=== PATIENT | female | born 1950 | race Caucasian/White ===

== ENCOUNTER 2019-09-23 18:15 | Inpatient (IN) | payer OTHER ==
[~2019-09-23] VITALS: Ht 154.9 cm; Wt 60.7 kg
--- NOTE | ~2019-09-23 | D ---
[facility] [place] [address] DISCHARGE SUMMARY Name: MICHAEL BOND Room #: 526B-B DIS IN M.R.#: [id number] Admission: 09/23/19 Attend Phys: Alberta Porras MD Discharge: 10/03/19 Date of : 52 Report #: [id number] THIS REPORT FOR: cc: Jaquelin Taylor MD,Jaquelin Britton,Mika Gama DO ~ THIS REPORT FOR: //name// CC: Alberta Taylor DATE OF SERVICE: 10/03/2019 INPATIENT PSYCHIATRIC DISCHARGE SUMMARY ATTENDING PHYSICIAN: Mika Britton DO. MORNING NEWS ANCHOR: Trupti Thorne MD DISCHARGE DIAGNOSES: Major neurocognitive disorder, likely due to vascular, but cannot exclude Alzheimer's component with behavioral disturbance, improved. Medical comorbidities, stageable 1-2 pressure ulcer on the coccyx; urinary tract infection for Proteus, on Omnicef; hypertension; gastroesophageal reflux disease; anemia; intractable right leg degenerative joint disease. HOSPITAL COURSE: The patient is on regular diet. I believe she has Ensure Max at evening meal. Psychiatric and medical care to be provided by receiving facility. DISCHARGE MEDICATIONS: Omnicef 300 mg p.o. b.i.d. x6 more days; baclofen 10 mg p.o. q. 8 p.r.n. for muscle spasm; escitalopram; Lexapro 10 mg oral daily for depression; cholecalciferol 5000 International Units p.o. daily for supplementation; docusate 100 mg p.o. b.i.d. for bowel motility, hold if diarrhea; famotidine 20 mg p.o. daily for GERD; ferrous sulfate 325 mg p.o. daily for supplementation; lorazepam 0.5 mg p.o. q. 8 p.r.n. anxiety; multivitamin 1 tab p.o. daily; Seroquel fumarate 25 mg p.o. b.i.d.; cyanocobalamin 1000 mcg oral daily for supplementation; vitamin C 1000 mg oral daily for supplementation. DISCHARGE LABORATORY DATA: Urinalysis has some slight positives; Proteus mirabilis grew out. Vitamin ____ 12 level 614. Total vitamin D 16.6, slightly low. Folate 13.3. REASON FOR ADMISSION: A 69-year-old female admitted for suicidal ideation, sent here from [facility] in [facility] [place] [address] DISCHARGE SUMMARY Name: MICHAEL BOND Room #: 526B-B [facility].#: [id number] Admission: 09/23/19 Attend Phys: Alberta Porras MD Discharge: 10/03/19 Date of : 52 Report #: [id number] [facility] with her . HOSPITAL COURSE: The patient was admitted to Geriatric Psychiatry Unit. Initially, she gave me a story she did not live with her and had been upset. In the Geriatric Psychiatry Unit, I performed a SLUMS, patient scored a low around 10/30, I believe, did not clarify things with Ni, social sciences chair at [facility], though presently, the patient had not left AMA, she has left several times previously. Her is quite physically ill ____ separately. PHYSICAL EXAMINATION: VITAL SIGNS: Today, temperature 36.7, pulse 64, respirations 30, BP 119/75, O2 sat 100% on low-flow oxygen. MUSCULOSKELETAL: Nonambulatory in a high-back wheelchair. MENTAL STATUS EXAMINATION: This is a well-developed, ill-appearing female. The patient is hard of hearing. Attention limited. Concentration limited. Speech is normal rate. Thought process is linear, generally goal directed. Thought content focused on getting back to see her . No SI, no HI, and no hopelessness or helplessness. Insight limited. Judgment limited. Fund of knowledge below average. PROGNOSIS: For this patient is guarded given her advanced dementia, physical debility and accompanying comorbidities. Head CT was done this admission, which showed atrophy and chronic advanced small vessel ischemic disease. Prognosis for this patient is guarded given her advanced dementia, physical debility. One thing I did want to make a note of is that she had any other general medical diagnosis ____. By: 21 13 Mika Britton, DO /nt
--- NOTE | 2019-09-23 19:54 | NUR ---
PT ARRIVED TO ROOM VIA EMS AT 1700. PT NEEDED ASSISTANCE TO TRANSFER OVER TO BED. PT HAD THOUGHTS OF SUICIDE FOR A YEAR NOW. PT STATED SHE HAD NO PLAN. PT DID SAY 2 WEEKS AGO SHE DID FALL OUT OF HER CHAIR PURPOSLY TO HURT SELF. PT RT LEG IS CONTRACTED FOR A YEAR AND A HALF NOW. PT STATED SHE HAD LEFT HIP FX BEFORE, BUT USING RT LEG HAS WEAKENED. PT ALSO STATED HER OF 45 YEARS RECENTLY HAD HIS LEG AMPUTATED. HE HAD THE OTHER LEG AMPUTATED FOUR YEARS AGO. SHE SAID THE STRESS WAS TOO MUCH AND SHE COULDN'T TAKE CARE OF HIM. THEY BOTH RESIDE AT [facility], SHE SAID THAT SHE HAS NOT BEEN GETTING PHYSICAL THERAPY AND JUST WANTED TO . PT IS VERY [place], NO HEARING AIDS. PT DIDN'T HAVE ANY BELONGINGS WITH HER EXCEPT HOSPITAL BLANKET. PT HAS WOUND TO COCCYX THAS HAS A DRESSING ON IT. PT STATED SHE DOES HAVE LOW SELF ESTEEM AND HER SAYS SHE NEEDS TO TALK TO SOMEONE. PT DID EAT A BOX DINNER. PT HAS OLD BRUISE TO LEFT SIDE OF FORHEAD THAT IS YELLOW IN COLOR. PT WILL NEED ASSISTANCE TO USE BSC, PT HAS BRIEF ON AT THIS TIME. PT DID SIGN HER CONCENTS FOR ADMISSION.
--- NOTE | 2019-09-23 20:12 | NUR ---
DID CALL PHONE NUMBER FOR DOUGLAS HER , NO ANSWER. [phone].
[2019-09-23] MEDS ORDERED: COLACE100 MG PO (21:05)
[2019-09-23] MEDS ORDERED: BACLOFEN 10MG T10 MG PO (21:05)
[2019-09-23] MEDS ORDERED: ACID CONTROLLER20 MG PO (21:05)
[2019-09-23] MEDS ORDERED: IRON325 M1 PO (21:06)
[2019-09-23] MEDS ORDERED: LEXAPRO5 MG PO (21:06)
[2019-09-23] MEDS ORDERED: MIRTAZAPINE15 M2 PO (21:07)
[2019-09-23] MEDS ORDERED: SUPER THERAVIT1 EACH PO (21:07)
[2019-09-23] MEDS ORDERED: ATIVAN0.5 M1 PO (21:07)
[2019-09-23] MEDS ORDERED: NYSTATIN15 G3 TOP (21:08)
[2019-09-23] MEDS ORDERED: SANTYL OINTMENT30 G1 TOP (21:08)
[2019-09-23] MEDS ORDERED: SEROQUEL 25 MG25 M1 PO (21:08)
[2019-09-23] MEDS ORDERED: VITAMIN C1000 MG PO (21:09)
[2019-09-23] MEDS ORDERED: B12 ACTIVE1000 MCG PO (21:09)
--- NOTE | 2019-09-24 05:53 | NUR ---
Assumed care of pt @ 1900. Pt calm et cooperative with iliana dang this shift. Took medications whole without difficulty. Ambulates via w/c per previous shift. Pt was bedfast this shift et did not attempt to ambulate. Prior shift also stated that pt had wound to buttocks but was unable to assess this shift. Wound had been assessed by prior shift but not photographed. Due to time constraints prior to pt going to bed, this nurse was unable to photograph. VSWNL. Health assessment with no abnormalities other than previously noted. Denies SI/HI @ present time. Currently resting in bed with eyes closed. Will continue to monitor per protocol.
[2019-09-24 08:21] VITALS: BP 123/84
[2019-09-24 12:54] VITALS: BP 123/84
--- NOTE | 2019-09-24 15:25 | NUR ---
Lying supine in bed eating lunch. Alert and orientated X4. Denies SI/HI. Concerned about pain on R buttock. Calm and cooperative, attempting to assist with cares. Breath sounds clear t/o. Reg HR auscultated. Color pink with brisk capillary refill and palpable peripheral pulses. Incontinent of yellow urine. Active bowel sounds over soft, rounded abdomen. States her last BM was Thursday. Large ulcer per R buttock, cleaned with NS, photographed and optiform drsg applied. Small ulcer per top of R foot with bruise with open top adjacent to ulcer. Both cleaned with NS and dressed with optiform after photographing. Currently sleeping in room without s/o distress.
--- NOTE | 2019-09-24 19:21 | NUR ---
Care of patient assumed at 1915. Patient is sleeping in bed. Assessment deferred until meds are prepared. When meds are taken to patient, she wakes easily and demands to know what the meds are, what they are for, and possible side effects. Once given this information, patient takes meds without issue. Allows assessment begrudgingly. HS, LS, BS all WNL. Denies SI/HI. Only shrugs when asked about pain. Dressing to buttock dry and intact. Refuses to answer orientation questions.
[2019-09-25 09:06] VITALS: BP 84/64
[2019-09-25 12:38] VITALS: BP 112/80
[2019-09-25 12:39] VITALS: BP 106/74
--- NOTE | 2019-09-25 20:36 | NUR ---
0800 Lying supine in bed with SR up. Alert and orientated X4. Flat, sad affect. States she wants to call her today but then states that they have not been accepting her phone calls at [facility]. Denies SI/HI. Breath sounds clear. Reg HR auscultated. Color pink with brisk capillary refill and palpable peripheral pulses. Incontinent of large amt yellow, malodorous urine with approximately 5 ml hernandez malodorous drainage on brief. Active bowel sounds over soft, rounded abdomen. Up to WC with two staff assist. Does not bear wt on legs. Drsgs on R buttock and R foot intact. Multiple requests to call . 1100 Called and spoke with him at length. When she got off phone she stated that she was getting a divorce and was tearful. Showered with alot of assistance and hair shampooed. Inguinal folds with some erythema and minimal excoriation. Dr. Shell here assessing pt, aware of drainage. States she will consider SENIOR PLANNING MANAGER exam as an outpt unless pt develops more symptoms. Will order nystatin for excoriation. Pt. states she wants to stay up for lunch and talk with again via phone. 1400 Wounds cleaned with NS and redressed. Slightly improved from yesterday. Incontinent of very large amt yellow malodorous urine. Cleaned up and placed in bed with hernandez in reach. Pt. states she had much better phone call with than one in AM. Affect brighter. Toenails clipped. 1800 Pt. spent most of day in dining room with peers. Requested phone again to call . Dr. Shell notified of malodorous urine, ordered UA. Informed that it may be difficult to obtain d/t pts repeated incontinence and inability to get to commode quickly d/t needing 2 staff members to transfer. Stated may obtain UA via straight cath if necessary. Currently seated in WC at nursing station.
[2019-09-25 20:58] VITALS: BP 109/74
--- NOTE | 2019-09-26 02:55 | NUR ---
Assumed care on 09/25/19 @ 19:15, in w/c propelling self in the mileu. AA&Ox3-4 fixated on calling her . Assisted to call, and he did not answer the call. Number verified with the [facility]. Repeatedly requests to call (about 12 times) Reminded that we called and he did not answer, and once it was past 2100, declined to call due to the hour of the evening being too late. cooperated with medication administration. In bed, asleep at this writing. Bed in low position, bed alarm set, will continue to moitor for patient safety.
[2019-09-26 05:27] VITALS: BP 109/74
[2019-09-26 08:15] VITALS: BP 101/64
--- NOTE | 2019-09-26 10:54 | NUR ---
WOUND CARE CONSULT; ASSESSED WOUNDS W/ ROUTE SALES TRAINEE GRAHAM CAIN WOUND COORDINATOR, PT CONFUSED BUT COOPERATIVE, STAGE 2 PRESSURE INJURY R BUTTOCK, PINK GRANULATING TISSUE PRESENT, SCANT DRAINAGE, SHEARING WOUND L BUTTOCK, NO DRAINAGE, R FOREFOOT WOUND X2, ONE DRY SCAB PRESENT, OTHER AREA BRUISING NOTED, TRAUMA? FOOT SLIGHTLY COOL TO TOUCH BUT PINK, DUE TO EDEMA UNABLE TO PALPATE DP NOR PT PULSES, STAFF STATES PT NONAMBULATORY AND DOES NOT WEAR SHOES, NO S/S INFECTION IN ANY OF THE WOUNDS, DISCUSSED NEED FOR TURNING AND OFF LOADING Q 2 HOURS GOLD SINCE LOW AIR LOSS PUMP NOT COMPATIBLE W/ BED RECOMMENDATIONS; PURACHOL AG, MOISTEN W/ NS TO R BUTTOCK WOUND, COVER W/ BORDER FOAM DRSG, CHANGE 3X WEEK AND PRN, ZGUARD TO L BUTTOCK WOUND DAILY, BORDER FOAM DRSG TO R FOREFOOT WOUNDS, CHANGE 3X WEEK OFF LOADING, TURN Q 2HOURS, WAFFLE SEAT CUSHION WHEN IN BED ROUTE SALES TRAINEE AWARE RECOMMENDATIONS;
[2019-09-26 22:01] VITALS: BP 134/83
--- NOTE | 2019-09-26 22:39 | NUR ---
Assumed care on 09/26/19 @ 19:15, a&ox2-3 incontinent of bladder, incontinent care provided. Cooperated with assessment, HRRR, Lungs CTA bilateral, ABD N x 4Q. Unable to report BM today or not d/t dementia. X2 assist, patient does not bear weight and is a heavy lift. Compliant with medication administration. In bed at this writing, bed in low level, bed alarm set. Eyes closed, respiration even and unlabored.
--- NOTE | 2019-09-27 08:50 | NUR ---
Assess due to pt with stage II coccyx ulcer and right forefoot ulcer. Followed by wound care. Admit to [facility] for SI, major depressive disorder. Has been eating 85-100% of meals which includes high protein sources. Wt status adequate BMI 25.6. Receives vitamin C and ferrous supplementation. Will add 1 ensure max per day, otherwise presents at low nutrition risk.
[2019-09-27 11:35] VITALS: BP 127/78
[2019-09-27 14:46] LABS: URINE BILIRUBIN NEGATIVE (Negative); URINE BLOOD NEGATIVE (Negative); URINE CLARITY CLEAR; URINE COLOR YELLOW; URINE GLUCOSE-RANDOM* NEGATIVE (Negative); URINE KETONES NEGATIVE (Negative); URINE LEUKOCYTES-REFLEX 2+ (Negative); URINE NITRITE-REFLEX NEGATIVE (Negative); URINE PROTEIN (DIPSTICK) NEGATIVE (Negative); URINE SPECIFIC GRAVITY 1.015 (1.005-1.035); URINE UROBILINOGEN 0.2 E.U./dl (0.2-1.0)
[2019-09-27 14:53] LABS: SQUAMOUS 0-3 Few /LPF (0-3)
[2019-09-27 14:54] LABS: CASTS None Seen /LPF (None Seen); URINE WBC-REFLEX >25 Many /HPF (0-5)
[2019-09-27 14:55] LABS: CRYSTALS None Seen /LPF (None Seen); URINE RBC 0-2 Rare /HPF (0-2)
--- NOTE | 2019-09-27 15:15 | NUR ---
SW faxed updates to [facility]
--- NOTE | 2019-09-27 18:00 | NUR ---
Assumed patient care at 0715. Vital signs stable, LSCTA, ABD soft and non-tender, BS x's 4. Patient continues to have wounds to bilateral heels and to buttocks. Wound care Team here today to assess and and treat wounds. Patient removed bandages from her buttocks. This nurse re-dressed them and provided education to patient per the importance of keeping the bandages on. Patient informed this nurse "they itch!." It is unknown if patient may be having an allergic reaction to the dressings as there is no redness, warmth or edema around the dressing sites. Will report this to on-coming nurse. Patient has displayed no inappropriate behaviors during this shift; no SI and/or HI. She keeps to herself in the Day Area/Dining Room. Food and drink intake is adequate. Compliant with medications. Affect is flat. Will continue to monitor.
[2019-09-27 19:26] VITALS: BP 132/76
--- NOTE | 2019-09-27 22:13 | NUR ---
PT RESTING IN [place] CHAIR IN DAY ROOM WATCHING TV. [facility] CONTACT, SMILING PLEASANT, COMPLIANT WITH MEDICATIONS AND ADL CARES. . BLE ANKLES AND FEET VERY COOL TO THE TOUCH AND PURPLE PREVIOUSLY NOTED FROM ADMISSION. PT ASKED IF HER CALLED. BED ALARM ON.
[2019-09-28 06:47] LABS: FOLIC ACID 13.3 ng/mL (8.6-58.9)
[2019-09-28 09:24] VITALS: BP 127/58
--- NOTE | 2019-09-28 11:35 | NUR ---
LAKEISHA and Dr Britton called and left a VM for Jones SUAZO at [facility] [phone]. Pt is presenting with dementia and moderate to severe impairment. D/C will happen if [facility] can provide the correct level of care.
--- NOTE | 2019-09-28 17:09 | NUR ---
PT ALERT AND ORIENTED TIMES FOUR. VSS. PT DENIES SI/HI/AH/VH. PT TOLERATES MEDS AND MEALS. PT ATTENDED GROUPS THIS SHIFT. NO INTERACTIONS WITH PEERS. WILL CONTINUE TO MONITOR.
[2019-09-28 20:07] VITALS: BP 127/61
--- NOTE | 2019-09-29 06:39 | NUR ---
Assumed care on 09/28/19 @ 19:15, new order for antibiotic, which was provided. Slept ovenight 10.8 hours.
--- NOTE | 2019-09-29 09:47 | NUR ---
LAKEISHA called and left another VM with Jones at [facility]. Per chart review Dr davis spoke with Jones yesterday and f/u will include finding an alternate DPOA , and making sure [facility] can manage the memory care needs for this pt.
--- NOTE | 2019-09-29 10:30 | NUR ---
WOUND CARE F/U; ASSESSED THE BUTTOCKS WOUNDS. THE PATIENT IS INCONTINENT OF URINE AND HAVE SATURATED THE DRESSINGS. GOOD, HEALTHY PERIWOUND. NO S/S OF INFECTION. RECOMMENDATIONS; D/C FOAM DRESSINGS AND ONLY USE ZGUARD BID TO THE BILATERAL BUTTOCKS/ISCIAL TUBEROSITIES. RN PRESENT
--- NOTE | 2019-09-29 12:34 | NUR ---
DR. AYOUB CANCELLED ORDERS FOR O.T. RIK AND ADL ASSESSMENTS. Pt LIVES IN A LTC FACILITY. STAFF AT THE FACILITY REPORTED THAT Pt REQUIRES MAX TO MOD ASSIST WITH ADL AND TRANSFERS.
--- NOTE | 2019-09-29 14:57 | NUR ---
0700 ASSUMED CARE OF PATIENT. VS STABLE BP 100/68 P-71 R-17 TEMP-98.3 O2 SATS 100%. PATIENT IS CALM AND COOPERATIVE A&O X3 PATIENT DENIES SI/HI. LUNG SOUNDS CLEAR, BS ACTIVE. MEDICATION TAKEN WHOLEWITHOUT DIFFICULTY. 0940 PATIENT PRESENT IN GROUP. 1030 ANCILLARY SERVICES MANAGER THERAPY IN TO SEE PT, WOUND ASSESSED AND DRESSING REMOVED. WOUND X2 HEALING WELL. Z-GUARD APPLIED NO DRESSING APPLIED. PATIENT REFUSES TO LYE IN BED TO STAY OFF BOTTOM AT THIS TIME. PATIENT TO AND OUT TO DAYROOM.
[2019-09-29 16:27] VITALS: BP 100/68
[2019-09-29 19:36] VITALS: BP 117/69
--- NOTE | 2019-09-30 06:40 | NUR ---
Assumed care on 09/29/19 @ 19:15, seated in a high back w/c. A&Ox3-4, cooperates with care. Antibiotic cefdinir provided and taken whole with water. Incontinent care provided when transferred x1 assist from w/c to bed. Cream applied to buttocks. Tylenol 650 provided @ 21:38 for knee pain rated 5/10 and follow up assessment noted to be sleeping, atiavan 0.5 provided for anxiety. patient slept well overnight for 9.6 hours sleep.
[2019-09-30 08:00] VITALS: BP 126/86
--- NOTE | 2019-09-30 10:22 | NUR ---
WOUND CARE NOTE; ASSESSED WOUNDS W/ HOT MIX OPERATOR JANNA, BUTTOCKS WOUNDS HEALING, SCANT DRAINAGE, L BUTTOCK WOUND ALMOST CLOSED, NO S/S INFECTION, R FOREFOOT WOUNDS SAME, NO WORSEN, PT CONFUSED BUT COOPERATIVE, HAS WAFFLE SEAT CUSHION ON CHAIR, ENCOURAGED TO NOT SIT FOR LONG PERIODS, STILL INCONT AT TIMES, SEE PROCESS INTERVENTIONS FOR WOUND DETAILS RECOMMENDATIONS; CONT CURRENT POC, ZGUARD TO BUTTOCKS WOUNDS BID AND PRN, BORDER FOAM DRSG TO R FOREFOOT 3X WEEK, MO/W/F AND PRN WAFFLE SEAT CUSHION TO CHAIR, DO NOT SIT LONGER THAN 2 HOURS , TURN Q2 HOURS WHEN IN BED HOT MIX OPERATOR AWARE
--- NOTE | 2019-09-30 11:00 | NUR ---
Assumed care 0700. Pleasant, cooperative, compliant with meds. Seen by wound care nurse. Buttock wound healing. Wanted to rest for awhile after wound care nurse here. Up later for lunch.
--- NOTE | 2019-09-30 13:34 | NUR ---
ERIC called Rodolfo hernandez [phone] and left a VM about d/c on Thursday. Eric then called Jones SUAZO at [facility] to discuss Thursday d/c and left another VM.
--- NOTE | 2019-09-30 14:22 | NUR ---
SW faxed updates that included a note that a time needed to be determind for d/c on Thursday to [facility]
--- NOTE | 2019-09-30 16:19 | NUR ---
Eric spoke with Jones at [facility] and d/c was set for 1pm on 10/02. SW will provide transportation. Pt will be skilled at [facility] before going LTC. Pt will need a neg COVID test too. This was reported to nursing
[2019-09-30 19:24] VITALS: BP 132/66
[2019-09-30 21:06] LABS: SYPHILIS AB Non Reactive (Non Reactive)
--- NOTE | 2019-10-01 04:31 | NUR ---
Pt calm et cooperative with pleasant demeanor this shift. Pt took medications whole without difficulty. Ambulates the halls with assistance of w/cJoesph NOLAND. Health assessment with no abnormalities other than previously noted. Socialized in dayroom with peers until HS. Denies SI/HI at present time. Currently resting in bed with eyes closed. Will continue to monitor per protocol.
[2019-10-01 07:54] VITALS: BP 142/77
--- NOTE | 2019-10-01 09:03 | NUR ---
0700 ASSUMED CARE OF PATIENT, PATIENT SITTING IN WHEEL CHAIR IN DAYROOM WATCHING TV. PATIENT ATE 100% OF BREAKFAST. NO C/O PAIN, DENIES NEEDS. DENIES SI/HI. MEDICATIONS TAKEN WHOLE. FALL PROTOCOL IN PLACE WITH YELLOW SHIRT ON, FALL RISK ARM BAND, YELLOW SOCKS AND CHAIR ALARM IN PLACE. VS STABLE, LUNG SOUND CLEAR, ACTIVE BS. BULK SYSTEM OPERATOR EDUCATED PATIENT REGARDING HER SITTING NO MORE THAN 2 HOURS AT A TIME. PATIENT VOICED UNDERSTANDING. WILL CONTINUE TO OBSERVE
[2019-10-01 19:38] VITALS: BP 110/77
--- NOTE | 2019-10-02 04:01 | NUR ---
Assumed care of pt @ 1900. Pt calm et cooperative [facility] shift. Took medications whole without difficulty. Ambulates with assistance of w/c. Pt closely monitored to make sure that is only in w/c for 2 hours maximum per orders. VSWNL. Health assessment with no abnormalities other than previously noted. Socialized with peers in dayroom at beginning of shift. Denies SI/HI at present time. COVID-19 swab done by 3rd floor nurse et sent to lab for analysis. PRN Tylenol given for knee pain. Pt questioned if she could have anything stronger in strength. Will pass on to day shift. Currently resting in bed with eyes closed. Will continue to monitor per protocol.
[2019-10-02 09:05] VITALS: BP 134/71
--- NOTE | 2019-10-02 09:10 | NUR ---
Assumed care 0700. Up for breakfast, fed self. Up until 1000 then to go to bed for a rest. She is anxious to see TV.
--- NOTE | 2019-10-02 14:54 | NUR ---
Discussed pt's need for COVID testing prior to discharge with nursing staff and Dr. Porras.
--- NOTE | 2019-10-02 19:34 | NUR ---
Dayshift note: Wound cares done per orders. right buttock with about 1 " reddened area, groin Nystatin applied after pericare, right top of foot cleansed w/dressing applied per orders.
[2019-10-02 20:00] VITALS: BP 113/75
--- NOTE | 2019-10-02 23:07 | NUR ---
Care assumed of patient at 1915: Patient seated in w/c in hallway at start of shift. Patient calm, pleasant and cooperative. Alert and oriented x4. Goal directed, states that she is nervous and excited about being discharged tomorrow. Denies pain or discomfort at this time. Reported that she did have pain to her knee earlier in the day. Denies SI/HI/AH/VH. Denies anxiety and depression. Reports that she "made a bad mistake" which is what lead her to be admitted. States that she has been feeling "much better". Patient ate 100% HS snack. Took HS medication whole without difficulty. Patient assisted to bed with max assist x2. Incontinent of bladder. Teresita care completed. Open areas to buttock cleaned with wound cleanser, pat dry and zguard applied. Nystatin cream applied to groin. Patient attempted to call her as well as the nurse, but went to voicemail. Patient reports that her goal is to return to her facility, receive therapy and become stronger. Patient was able to fall asleep without difficulty and is resting quietly at this time.
[2019-10-03] MEDS ORDERED: CEFDINIR300 MG PO (07:27)
[2019-10-03] MEDS ORDERED: BACLOFEN 10MG T10 MG PO (07:29)
[2019-10-03] MEDS ORDERED: LEXAPRO 10 MG T10 M1 PO (07:30)
[2019-10-03] MEDS ORDERED: VITAMIN D325 MCG PO (07:31)
[2019-10-03 07:45] VITALS: BP 119/75
--- NOTE | 2019-10-03 09:52 | NUR ---
WOUND CARE F/U ASSESSED WOUNDS W/ GENERAL PURCHASING AGENT PHYLISS, BUTTOCKS WOUNDS HEALING, PINK VIABLE TISSUE PRESENT, SCANT DRAINAGE, NO S/S INFECTION, R FOREFOOT WOUNDS HEALING, LOWER WOUND DRY ESCHAR, UPPER BRUISING BUT LESSEN, SEE PROCESS INTERVENTIONS FOR WOUND DETAILS. COOPERATIVE RECOMMENDATIONS; CONT POC ZGUARD TO BUTTOCKS WOUNDS, BORDER FOAM DRSG TO R FOREFOOT, ENCOURAGED TO NOT SIT LONGER THAN 2 HOUR PERIODS, WHEN IN CHAIR SIT ON WAFFLE SEAT CUSHION, TURN Q 2 HOURS WHEN IN BED GENERAL PURCHASING AGENT AWARE
[2019-10-03 15:47] VITALS: BP 119/75
--- NOTE | 2019-10-03 15:50 | NUR ---
ASSUMED CARE AT 0700 THIS MORNING. PT. UP AND ON THE UNIT. SHE INFORMED THIS QUILTING MACHINE OPERATOR THAT SHE IS TO BE DISCHARGED TODAY. SHE DID NOT HAVE ANY CLOTHING HERE AND IS TO BE DRESSED IN A HOSPITAL GOWN TO BE DISCHARGED. SHE TOOK HER MORNING MEDICATIONS WITHOUT DIFFICULTIES. SHE AT BREAKFAST AND LUNCH HERE. SHE WAS TO D/C AT 1300. BUT AT 1400 HER RIDE WAS CALLED AND THEY STATED THEY WOULD BE HERE BETWEEN 1500 AND 1530 TODAY. HER RIDE WAS HERE AT 1550. SHE WAS TAKEN TO THE THE ER ENTRANCE TO MEET HER W/C VAN. [facility] NOTIFIED AND REPORT GIVEN TO STAFF. SHE LEFT WITH A PACKET THAT LISTED MEDICATIONS, D/C DR. NOTES, LABS, TESTS, ETC. THEY LEFT IN W/C VAN WITHOUT INCIDENCE.
--- NOTE | 2019-10-05 15:00 | NUR ---
LAKEISHA made a pakcet and left it on beck chart. LAKEISHA set up transportation. LAKEISHA faxed d/c summary and orders [facility] neg COVID 19 test results. LAKEISHA spoke with Jones and discussed that pt was not exit seeking, and will be skilled at [facility]. It was advised that this pt may need memory care in the near future.
--- NOTE | 2019-10-05 15:01 | NUR ---
LAKEISHA spoke with Manfred Doyle with the [facility] D[facility] concerning a hotline call recieved. LAKEISHA advised that this pt discharged to [facility] and that she has a new dx of dementia based on her SLUMS assessment and the clinical findings. Macie faxed a request for records that included this inforamtion. [facility] may be seeking guardianship on behalf of this pt. LAKEISHA faxed DR Britton's progress notes and LAKEISHA notes per the request to [phone] and left this to be scanned into the patients chart.
== END 2019-10-03 15:50 | DRG 57 ==
LOC: SBH 18:15
PROVIDERS: Hospitalist; Psychiatry & Neurology Psychiatry; ADMIT Psychiatry & Neurology Psychiatry; ATTEND Psychiatry & Neurology Psychiatry
DX: G30.9 Alzheimer's disease, unspecified (principal); F02.81 Dementia in other diseases classified elsewhere, unspecified severity, with behavioral disturbance; R45.851 Suicidal ideations; N39.0 Urinary tract infection, site not specified; F01.51 Vascular dementia, unspecified severity, with behavioral disturbance; L89.152 Pressure ulcer of sacral region, stage 2; B96.4 Proteus (mirabilis) (morganii) as the cause of diseases classified elsewhere; I10 Essential (primary) hypertension; K21.9 Gastro-esophageal reflux disease without esophagitis; M17.11 Unilateral primary osteoarthritis, right knee; F32.9 Major depressive disorder, single episode, unspecified; F41.9 Anxiety disorder, unspecified; D64.9 Anemia, unspecified; Z79.899 Other long term (current) drug therapy; Z99.3 Dependence on wheelchair; Z03.818 Encounter for observation for suspected exposure to other biological agents ruled out
CPT/HCPCS: 10880